=== PATIENT | female | born 1980 | race Caucasian/White ===

== ENCOUNTER → 2017-10-22 | Outpatient (CLI) | payer OTHER | LOC: LAB SHORT 16:09 → LAB 16:09 | DX: Z34.83 Encounter for supervision of other normal pregnancy, third trimester (principal); Z3A.35 35 weeks gestation of pregnancy | CPT/HCPCS: 87081; 87653 ==

== ENCOUNTER → 2019-05-06 | Outpatient (CLI) | payer OTHER ==
[~2019-05-06] MED LIST: ACYC400; AMOCLA875 PO; EXPECTA PRENAT1 EACH; IBUP800 PO; ONDA4ODT PO; Percocet 5-3251 EACH PO; SETLAKIN 0.151 EAC1 PO; Super B With V1 EACH
[2019-05-07 16:06] LABS: HPV 16 Negative (Negative); HPV 18 Negative (Negative); HPV OTHER HR TYPES Negative (Negative)
== END | disposition home or self-care (01) ==
LOC: LAB 10:38 → LAB SHORT 10:38
PROVIDERS: Obstetrics & Gynecology
DX: Z12.4 Encounter for screening for malignant neoplasm of cervix (principal); R30.0 Dysuria
CPT/HCPCS: 87086; 87624; G0123

== ENCOUNTER 2019-05-07 11:56 | Observation (INO) | payer OTHER ==
[~2019-05-07] VITALS: Ht 177.8 cm; Wt 65.3 kg
[~2019-05-07 11:56] MED LIST changes: -AMOCLA875 PO; -ONDA4ODT PO; -SETLAKIN 0.151 EAC1 PO
[2019-05-07 13:06] LABS: BASOPHILS ABSOLUTE AUTO 0.06 K/mm3 (0.00-0.23); BASOPHILS PERCENT AUTO 1 % (0-2); EOSINOPHILS ABSOLUTE AUTO 0.01 K/mm3 (0.00-0.68); EOSINOPHILS PERCENT AUTO 0 % (0-6); Hematocrit 44.1 % (33.0-51.0); IMMATURE GRAN ABSOLUTE AUTO 0.03 K/mm3 (0.00-0.10); IMMATURE GRAN PERCENT AUTO 0 % (0-1); LYMPHOCYTES ABSOLUTE AUTO 0.36 K/mm3 (0.84-5.20); LYMPHOCYTES PERCENT AUTO 4 % (21-46); MONOCYTES ABSOLUTE AUTO 0.54 K/mm3 (0.16-1.47); MONOCYTES PERCENT AUTO 6 % (4-13); Mean Corpuscular HGB 31.4 pg (26.0-34.0); Mean Corpuscular Volume 93 fL (80-100); Mean Platelet Volume 9.7 fL (9.1-12.4); NEUTROPHILS ABSOLUTE AUTO 8.17 K/mm3 (1.96-9.15); NEUTROPHILS PERCENT AUTO 89 % (41-73); Platelet Count 255 K/mm3 (150-400); RDW Coefficient Variation 12.7 % (11.7-14.2); RDW Standard Deviation 43.8 fL (35.1-46.3); Red Blood Cell Count 4.77 M/mm3 (3.80-5.20); White Blood Cell Count 9.17 K/mm3 (4.00-11.30)
[2019-05-07 13:28] LABS: Alanine Aminotransfer (ALT/SGP 51 U/L (12-78); Albumin, Blood 3.8 g/dL (3.4-5.0); Albumin/Globulin Ratio 0.9 (0.8-1.8); Alk Phos 88 U/L (50-136); Anion Gap 5 mmol/L (6-16); Aspartate Aminotrans (AST/SGOT 37 U/L (12-37); Bilirubin, Total 0.4 mg/dL (0.1-1.0); Blood Urea Nitrogen 10 mg/dL (8-24); Bun/Creatinine Ratio 17.5 (12.0-20.0); CO2, Blood 27 mmol/L (21-32); Calcium, Blood 9.2 mg/dL (8.5-10.1); Chloride, Blood 105 mmol/L (98-108); Creatinine, Blood 0.57 mg/dL (0.40-1.00); Globulin, Blood 4.3 g/dL (2.2-4.0); Glomerular Filtration Rate >60 (60-); Glucose, Blood 99 mg/dL (70-99); Potassium, Blood 3.6 mmol/L (3.5-5.5); Sodium, Blood 137 mmol/L (136-145); Total Protein, Blood 8.1 g/dL (6.4-8.2)
[2019-05-07] MEDS ORDERED: SETLAKIN 0.151 EAC1 PO (13:59)
[2019-05-07 14:02] LABS: Source, Urine Clean Catch
[2019-05-07 14:04] LABS: Bilirubin, Urine Neg (Neg); Blood, Urine 2+ (Neg); Glucose Qualitative, Urine Neg (Neg); Ketones, Urine 3+ (Neg); Leukocyte Esterase, Urine Neg (Neg); Nitrite, Urine Neg (Neg); Protein, Urine 3+ (Neg); Urobilinogen, Urine 2+ (Normal)
[2019-05-07 14:18] LABS: Appearance, Urine Hazy (Clear); Color, Urine Yellow (P-Yellow)
[2019-05-07 14:20] LABS: Bacteria Few /hpf; Mucus Light (0-Heavy); Squamous Epithelial Cells Few /hpf (Few)
--- NOTE | 2019-05-07 19:17 | NUR ---
SHIFT SUMMARY POD 0 S/P LAP APPY. ABD INCISIONS 3X HAVE STERI-STRIPS IN PLACE THAT ARE C/D/I WITH NO DRAINAGE NOTED. A/OX4 WITH VSS. PT TOLERATING WATER AND CRACKERS. MEDICATED ONCE FOR PAIN WITH ONE TAB OF 5MG OXY. PAS BLE IN PLACE. AWAITING POST-OP VOID. CURRENTLY RESTING IN BED WITH CALL LIGHT WITHIN REACH. WILL CONT TO MONITOR AND GIVE REPORT TO ONCOMING RN AT SHIFT CHANGE
[2019-05-08 04:27] LABS: BASOPHILS ABSOLUTE AUTO 0.06 K/mm3 (0.00-0.23); BASOPHILS PERCENT AUTO 1 % (0-2); EOSINOPHILS ABSOLUTE AUTO 0.13 K/mm3 (0.00-0.68); EOSINOPHILS PERCENT AUTO 2 % (0-6); Hemoglobin 11.9 g/dL (11.5-16.0); IMMATURE GRAN ABSOLUTE AUTO 0.02 K/mm3 (0.00-0.10); IMMATURE GRAN PERCENT AUTO 0 % (0-1); LYMPHOCYTES ABSOLUTE AUTO 0.86 K/mm3 (0.84-5.20); LYMPHOCYTES PERCENT AUTO 14 % (21-46); MONOCYTES ABSOLUTE AUTO 0.57 K/mm3 (0.16-1.47); MONOCYTES PERCENT AUTO 9 % (4-13); Mean Corpuscular HGB 31.2 pg (26.0-34.0); Mean Corpuscular HGB Conc 33.1 g/dL (31.5-36.5); Mean Corpuscular Volume 95 fL (80-100); Mean Platelet Volume 9.8 fL (9.1-12.4); NEUTROPHILS ABSOLUTE AUTO 4.48 K/mm3 (1.96-9.15); NEUTROPHILS PERCENT AUTO 73 % (41-73); Platelet Count 175 K/mm3 (150-400); RDW Coefficient Variation 12.7 % (11.7-14.2); RDW Standard Deviation 44.3 fL (35.1-46.3); Red Blood Cell Count 3.81 M/mm3 (3.80-5.20); White Blood Cell Count 6.12 K/mm3 (4.00-11.30)
--- NOTE | 2019-05-08 05:31 | NUR ---
POD 1 S/P LAP APPY. PT VSS T/O NIGHT. STERI STRIPS CDI W/NO ACTIVE DRNG NOTED. PT STRUGGLED W/PAIN CONTROL, NEEDING BOTH PO AND IV PAIN MEDS TO KEEP PAIN DANIELA. PT REP PAIN MAINLY IN RUQ BENEATH RIBS. NO REDNESS/SWELLING NOTED. PT DANIELA PO, NO C/O N/V, REP NO FLATUS YET, IS VOIDING URINE W/O DIFFICULTY. PT AMB W/SBA, IS PAINFUL W/MVMT. PT USING CALL LIGHT FOR ASSISTANCE, WILL CONT TO MONITOR UNTIL REP GIVEN TO ONCOMING RN,
--- NOTE | 2019-05-08 15:05 | NUR ---
DR. GRACIA IN TO SEE PATIENT.
--- NOTE | 2019-05-08 17:36 | NUR ---
SHIFT SUMMARY: PT POD #1 FOR LAP APPY. LAP SITES X3 CDI WITH SMALL AMOUNT OF DRY DRAINAGE. PT PAINFUL THROUGHOUT SHIFT WITHOUT RELIEF FROM PAIN MEDICATION. NEW ORDER FOR PERCOCET 7.5. PT STARTED ON THIS AT APPROX 1600. IN ADDITION, PT MEDICATED WITH IV FENTANYL AND TORADOL PER EMAR. PT C/O PAIN ON THE RIGHT SIDE UNDER RIBS. PT C/O NAUSEA + HEARTBURN ONCE. PT MEDICATED WITH ZOFRAN. PT REMAINS ON CLEAR LIQUID DIET PER PT CHOICE. DENIES PASSING FLATUS. AMBULATING HALLWAY AND INDEPENDENT IN ROOM. VOIDING WELL. PLAN FOR POSSIBLE DISCHARGE IN THE MORNING.
--- NOTE | 2019-05-09 05:24 | NUR ---
POD 2 S/P LAP APPY. PT VSS T/O NIGHT. DRESSINGS CDI. PT CONT TO STRUGGLE W/RIGHT RIB PAIN. PAIN MGD ALT PERCOCET AND TORADOL W/PAIN AVG 5/10 AFTER MEDS GIVEN. PT REP MILD NAUSEA, NO EMESIS, ZOFRAN GIVEN X1 W/REP RELIEF. PO MOSTLY CLEARS PER PT REQ. PT REP MIN FLATUS. PT AMB INDEP IN HALLS, IS CALLING FOR ASSISTNANCE. WILL CONT TO MONITOR UNTIL REP GIVEN TO ONCOMING RN.
--- NOTE | 2019-05-09 15:18 | NUR ---
PAIN PT REPORTS HER PAIN HAS BEEN BETTER MANAGED TODAY. SHE FEELS THAT PERCOCET HAS CAUSED HER TO FEEL NAUSEATED AND REPORTS SHE HAD ITCHING AFTER TAKING PERCOCET. PAIN HAS BEEN MANAGED WITH FENTANYL AND TORADOL. AWAITING CALL FROM DR. GRACIA REGARDING PAIN MANAGEMENT.
[2019-05-09] MEDS ORDERED: AMOCLA875 PO (16:53)
[2019-05-09] MEDS ORDERED: ONDA4ODT PO (16:54)
--- NOTE | 2019-05-10 04:19 | NUR ---
SHIFT SUMMARY POD 3 S/P LAP APPY. ABD INCISIONS 3X C/D/I WITH STERI- STRIPS IN PLACE. PT IND IN ROOM AND AMBULATED IN HALLWAY SEVERAL TIMES TONIGHT. REPORTS RUQ/RIB PAIN; MEDICATED WITH 10MG OXY PER ORDERS. DENIES N/V, ABLE TO TOLERATE REGULAR DIET. PLAN TO D/C THIS MORNING. CURRENTLY RESTING IN BED WITH CALL LIGHT IN REACH. WILL CONT. TO MONITOR AND GIVE REPORT TO ONCOMING RN.
--- NOTE | 2019-05-10 10:16 | NUR ---
DISCHARGE SUMMARY PT A&OX4, VSS, WALKED OFF FLOOR WITH , WITH ALL PERSONAL POSSESSIONS INCLUDING DC PACKET AND 1 NARCOTIC SCRIPT. DC INSTRUCTIONS PROVIDED YESTERDAY, PT REP UNDERSTANDING THOSE INSTRUCTIONS.
== END 2019-05-10 11:00 | disposition home or self-care (01) ==
LOC: ER 11:56 → SURS 14:38 → ER 14:38 → SURS 17:02
PROVIDERS: Emergency Medicine; Physician Assistant; ADMIT Surgery
PROC: 0DTJ4ZZ Resection of Appendix, Percutaneous Endoscopic Approach (ICD-10-PCS; principal; 2019-05-07 15:00)
DX: K35.80 Unspecified acute appendicitis (principal); Z88.5 Allergy status to narcotic agent
CPT/HCPCS: 36415; 74176; 80053; 81001; 81025; 83690; 85025; 88304; 96365; 96366; 96374; 96375; 96376; 99285-25; A9270-GY; G0378; J0330; J1885; J2250; J2405; J2543; J2704; J3010; J7030; J7120